=== PATIENT | female | born 1955 | race African-American/Black ===

== ENCOUNTER 2018-02-18 12:39 | Observation (INO) | payer SELFPAY ==
[2018-02-18] MEDS ORDERED: Nitroglycerin 2% Ointment 1 INCH/1 GM Packet ONE ×2 (13:25→14:42)
[2018-02-18 13:39] LABS: Troponin I Less than 0.010 ng/mL (< 0.028)
[2018-02-18] MEDS ORDERED: Acetaminophen 500 MG TAB ONE (14:42)
[2018-02-18] MEDS ORDERED: hydrALAZINE 20 MG/ML VIAL ONE (15:32)
[2018-02-18] MEDS ORDERED: Guaifenesin DM 100-10/5 ML UDCUP PO PRN (16:18)
[2018-02-18] MEDS ORDERED: Amlodipine 10 MG TAB PO SCH (16:18)
[2018-02-18] MEDS ORDERED: Acetaminophen 325 MG TAB PO PRN (16:18)
[2018-02-18 16:24] VITALS: BMI 18.6
[2018-02-18] MEDS: Famotidine 20 MG TAB PO SCH (20:18)
[2018-02-18] MEDS: Metoprolol Tartrate 25 MG TAB PO SCH (20:18)
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
[2018-02-19 05:22] LABS: #Basophils 0.1 thou/uL (0.0-0.2); #Eosinphils 0.1 thou/uL (0.0-0.7); #Lymphocytes 2.2 thou/uL (1.20-3.40); #Monocytes 0.6 thou/uL (0.11-0.59); #Neutrophils 3.6 thou/uL (1.40-6.50); %Basophils 1.3 % (0.0-1.0); %Eosinophils 1.3 % (0.0-10.0); %Lymphocytes 33.4 % (21.0-51.0); %Monocytes 8.4 % (0.0-10.0); %Neutrophils 55.6 % (42.0-75.0); Hemoglobin 13.5 g/dL (12.0-16.0); Mean Corpuscular HGB CONC 33.3 g/dL (32.0-36.0); Mean Corpuscular Hemoglobin 32.9 pg (27.0-31.0); Mean Corpuscular Volume 98.8 fL (78.0-98.0); Mean Platelet Volume 7.4 fL (7.4-10.4); Platelet Count 224 thou/uL (130-400); RBC Distribution Width 12.3 % (11.5-14.5); White Blood Cell (WBC) Count 6.5 thou/uL (4.8-10.8)
[2018-02-19 05:36] LABS: Anion Gap 12 mmol/L (10-20); BUN (Urea Nitrogen) 15 mg/dL (9.8-20.1); Calc. Creatinine Clearance 45 mL/min (70-130); Calcium 9.5 mg/dL (7.8-10.44); Carbon Dioxide 23 mmol/L (23-31); Cardiac Risk 3.9 (Less than 4.5); Chloride 108 mmol/L (98-107); Cholesterol 211 mg/dl (< 200 Desired); Estimated GFR-MDRD 73; Glucose 98 mg/dL (80-115); HDL Cholesterol 54 mg/dL (>60 Neg Risk); LDL Cholesterol, Calculated 144 mg/dL; Potassium 3.9 mmol/L (3.5-5.1); Sodium 139 mmol/L (136-145); Triglycerides 67 mg/dL (Less than 150)
[2018-02-19 05:41] LABS: CKMB 1.2 ng/mL (0-6.6); Troponin I Less than 0.010 ng/mL (< 0.028)
[2018-02-19] MEDS ORDERED: Aspirin 325 MG TAB PO SCH (09:00)
[2018-02-19] MEDS ORDERED: Amlodipine 10 MG TAB PO SCH (09:00)
[2018-02-19] MEDS ORDERED: Enoxaparin Sodium 30 MG/0.3 ML SYRINGE SC SCH (09:00)
[2018-02-19] MEDS ORDERED: predniSONE 20 MG TAB PO SCH (09:00)
--- NOTE | 2018-02-19 10:02 | PDOC.PN ---
- Subjective Encounter Start Date: 02/19/18 Encounter Start Time: 08:15 Subjective: no chest pain or palp -: breathing is better - Objective Resuscitation Status: Resuscitation Status FULL:Full Resuscitation MAR Reviewed: Yes Vital Signs & Weight: Vital Signs (12 hours) Temp Pulse Resp BP Pulse Ox 02/19/18 07:38 98.3 F 69 16 138/71 100 02/19/18 07:12 76 18 100 02/19/18 03:10 98.3 F 70 16 135/74 100 02/18/18 23:08 98.2 F 66 16 125/69 99 02/18/18 22:50 94 12 Weight Weight 102 lb 3.2 oz I&O: 02/18/18 02/19/18 02/20/18 06:59 06:59 06:59 Intake Total 800 Output Total 900 Balance -100 Result Diagrams: 02/19/18 05:13 02/19/18 05:13 Phys Exam - Physical Examination HEENT: PERRLA, moist MMs Neck: no JVD, supple Respiratory: no wheezing, no rales Cardiovascular: RRR, no significant murmur Gastrointestinal: soft, non-tender, positive bowel sounds Musculoskeletal: no edema, pulses present Neurological: non-focal, moves all 4 limbs Psychiatric: normal affect, A&O x 3 Dx/Plan (1) Chest pain Code(s): R07.9 - CHEST PAIN, UNSPECIFIED Status: Acute Qualifiers: Chest pain type: unspecified Qualified Code(s): R07.9 - Chest pain, unspecified (2) COPD (chronic obstructive pulmonary disease) Status: Acute Qualifiers: COPD type: COPD with acute exacerbation Qualified Code(s): J44.1 - Chronic obstructive pulmonary disease with (acute) exacerbation (3) HTN (hypertension) Code(s): I10 - ESSENTIAL (PRIMARY) HYPERTENSION Status: Chronic Qualifiers: Hypertension type: essential hypertension Qualified Code(s): I10 - Essential (primary) hypertension (4) Dyslipidemia Code(s): E78.5 - HYPERLIPIDEMIA, UNSPECIFIED Status: Acute - Plan asp, lipitor, norvasc, lopressor -: levaquin, prednisone -: ldl is 144 -: await stress test results * . Review of Systems - Medications/Allergies Allergies/Adverse Reactions: Allergies Allergy/AdvReac Type Severity Reaction Status Date / Time No Known Allergies Allergy Verified 02/18/18 16:26 Medications: Current Medications Acetaminophen (Tylenol) 650 mg PO Q4H PRN PRN Reason: Headache/Fever or Pain Albuterol/Ipratropium (Duoneb) 3 ml NEB [id number] [facility] Last Admin: 02/19/18 07:12 Dose: 3 ml Amlodipine Besylate (Norvasc) 10 mg PO DAILY [facility] Aspirin (Aspirin) 325 mg PO DAILY [facility] Atorvastatin Calcium (Lipitor) 20 mg PO HS [facility] Enoxaparin Sodium (Lovenox) 30 mg SC 0900 [facility] Famotidine (Pepcid) 20 mg PO BID [facility] Last Admin: 02/18/18 20:18 Dose: 20 mg Guaifenesin/Dextromethorphan (Robitussin Dm) 15 ml PO Q4H PRN PRN Reason: Cough Levofloxacin (Levaquin) 500 mg PO DAILY [facility] Metoprolol Tartrate (Lopressor) 25 mg PO BID [facility] Last Admin: 02/18/18 20:18 Dose: 25 mg Prednisone (Prednisone) 20 mg PO DAILY [facility]
[2018-02-19] MEDS ORDERED: Regadenoson 0.4 MG/5 ML SYRINGE ONE (11:03)
[2018-02-19] MEDS: Metoprolol Tartrate 25 MG TAB PO SCH (11:13)
[2018-02-19] MEDS: Famotidine 20 MG TAB PO SCH (11:13)
[2018-02-19 11:58] VITALS: TEMP 98.4
[2018-02-19 12:35] VITALS: BP 138/80
--- NOTE | 2018-02-19 15:06 | NM ---
CARDIAC STRESS SPECT: HISTORY: A 62-year-old female with chest pain, COPD, hypertension. TECHNIQUE: A myocardial perfusion scan was performed using a single-isotope 1-day protocol with Technetium 99m s estamibi. Ten mCi were injected intravenously for the rest exam followed by [address] stress [address] udy. Pharmacologic stress with LexiScan was monitored and interpreted by Rina Parker nurse practition er. FINDINGS: Homogeneous tracer distribution is seen in the myocardial segments on stress and rest images without fixed or reversible defects. GATED SPECT LVEF: 88%. WALL MOTION EXAM: Normal. IMPRESSION: Normal myocardial perfusion scan. POS: PHYLLIS
[2018-02-19] MEDS ORDERED: Atorvastatin Calcium 20 MG TAB PO SCH (21:00)
== END 2018-02-19 14:39 | disposition home or self-care (01) ==
LOC: ERS 12:39 → 2SW 15:05
PROVIDERS: ADMIT Internal Medicine; ATTEND Internal Medicine
DX: R07.9 Chest pain, unspecified (principal); J44.9 Chronic obstructive pulmonary disease, unspecified; I10 Essential (primary) hypertension; E78.5 Hyperlipidemia, unspecified; Z79.82 Long term (current) use of aspirin; Z79.899 Other long term (current) drug therapy
CPT/HCPCS: 36415; 78452; 80048; 80061; 82553; 84484; 85025; 93005; 93017; 94640; 94760; 96374; A9500; G0378; J0360; J1650; J2785; J7506; J7620